=== PATIENT | female | born 1955 | race Caucasian/White ===

== ENCOUNTER → 2017-03-17 | Outpatient (CLI) | payer BC ==
[~2017-03-17] MED LIST: BNC40 PO; CLB/200 PO; LORA-741 PO; METO25TA3 PO
--- NOTE | 2017-03-17 15:23 | MAMMOGRAPHY REPORT ---
BILATERAL DIGITAL SCREENING MAMMOGRAM WITH CAD: 03/17/2017 CLINICAL HISTORY: Routine screening. TECHNIQUE: Current study was also evaluated with a Computer Aided Detection (CAD) system. Bilateral CC and MLO views were obtained. COMPARISON: Comparison is made to exams dated: 03/16/2016 mammogram, 01/23/2015 mammogram, 10/16/2012 ma mmogram, 09/09/2011 mammogram, 09/08/2010 mammogram, and 09/07/2009 mammogram - [facility]. BREAST COMPOSITION: The tissue of both breasts is heterogeneously dense, which may obscure small mas ses. FINDINGS: No suspicious masses, calcifications, or areas of architectural distortion are noted in ei ther breast. There has been no significant interval change compared to prior exams. Scattered bilater al benign-appearing calcifications are not significantly changed. IMPRESSION: ACR BI-RADS CATEGORY 2: BENIGN There is no mammographic evidence of malignancy. A 1 year screening mammogram is recommended. The pa tient will receive written notification of the results. Approximately 10% of breast cancers are not detected with mammography. A negative mammographic report should not delay biopsy if a clinically suggestive mass is present. Mendy Cummings M.D. ah/:03/17/2017 12:05:55 Marine Electrician Apprentice: Tylor GREEN(R)(M), [facility] letter sent: Normal 1/2 BI-RADS Code: ACR BI-RADS Category 2: Benign
== END | disposition home or self-care (01) ==
LOC: C.MAMM 11:20
PROVIDERS: ATTEND Obstetrics & Gynecology
DX: Z12.31 Encounter for screening mammogram for malignant neoplasm of breast (principal)

== ENCOUNTER → 2017-10-27 | Outpatient (CLI) | payer BC ==
[~2017-10-27] MED LIST changes: +ASCA500 PO; +ASPI81CH2 PO; +CALC500C3 PO; +ESCI1TAB10 PO; +GLC5 PO; +HYDR-5688 PO; +LEVO25TA5 PO; +MAGN1CAP4 PO; +MELO15TA10 PO
[2017-10-27 17:21] LABS: BASO % 0.4 %; BASO ABS # 0.02 K/uL (0-0.2); EOS % 2.1 %; HEMATOCRIT 42.6 % (37-47); HEMOGLOBIN 14.4 g/dL (12.0-16.0); IG# 0.01 K/uL (0.00-0.02); LYMPH ABS # 1.46 K/uL (1.2-3.4); MEAN CELL VOLUME 94.9 fL (80-100); MEAN CORPUSCULAR HEMOGLOBIN 32.1 pg (25-34); MEAN CORPUSCULAR HGB CONC 33.8 g/dl (32-36); MEAN PLATELET VOLUME 10.1 fL (7.4-10.4); MONO % 6.2 %; NEUT % 61.1 %; NEUT ABS # 2.97 K/uL (1.4-6.5); PLATELET COUNT 217 K/uL (130-400); RED CELL DISTRIBUTION WIDTH CV 12.5 % (11.5-14.5); RED CELL DISTRIBUTION WIDTH SD 43.2 fL (36.4-46.3); WHITE BLOOD COUNT 4.86 K/uL (4.8-10.8)
== END | disposition home or self-care (01) ==
LOC: C.CPL 16:29
PROVIDERS: ATTEND Orthopaedic Surgery Sports Medicine
DX: S83.232D Complex tear of medial meniscus, current injury, left knee, subsequent encounter (principal); X58.XXXD Exposure to other specified factors, subsequent encounter

== ENCOUNTER → 2017-10-31 | Day surgery (SDC) | payer BC ==
[2017-10-30 09:07] VITALS: BMI 44.0
--- NOTE | 2017-10-30 17:38 | HISTORY & PHYSICAL EXAMINATION ---
DATE OF ADMISSION: 10/31/2017 ADMISSION HISTORY AND PHYSICAL CHIEF COMPLAINT: Acute left knee pain. HISTORY OF PRESENT ILLNESS: This is a 62-year-old female patient of Dr. Glass'vito complaining of acute left knee pain since August of 2017. She has had no injury and the pain has progressively gotten worse. MRI has confirmed a positive medial meniscus complex tear. The patient wishes to proceed with a left knee arthroscopic partial medial meniscectomy and chondroplasty. PAST MEDICAL HISTORY: Hypertension, sleep apnea with the use of CPAP, anxiety, fibromyalgia, diabetes mellitus, hypothyroidism, osteoarthritis, acid reflux, obesity, and history of uterine cancer. SOCIAL HISTORY: Nonsmoker, nondrinker. PAST SURGICAL HISTORY: Tubal ligation and appendectomy. FAMILY HISTORY: Noncontributory. REVIEW OF SYSTEMS: The patient complains of chronic left knee pain and instability. Otherwise, denies any shortness of breath, chest pain, nausea, vomiting or any other joint complaints. MEDICATIONS: 1. Prednisone 5 mg daily. 2. Escitalopram 20 mg daily. 3. Benicar 40 mg daily. 4. Tirosint 50 mcg daily. 5. Ativan 0.5 mg 2 tablets t.i.d. as needed. 6. Tayler 180 mg daily. 7. Magnesium 200 mg daily. 8. Calcium 500 daily as needed. 9. Vitamin B complex. 10. Vitamin D3 4000 units daily. 11. Vimovo 500/20 two times every 30 minutes before meals. ALLERGIES: IJEOMA INHIBITORS AND MILK. PHYSICAL EXAMINATION: GENERAL: Well-developed, well-nourished 62-year-old female in no acute distress. She is alert and oriented x3 and pleasant. HEENT: Normocephalic, atraumatic. Extraocular motions are intact. Pupils are equal and reactive to light. HEART: Regular rate and rhythm, no murmurs appreciated. LUNGS: Clear. ABDOMEN: Soft, nontender, bowel sounds present. EXTREMITIES: Left knee reveals a positive Selwyn's with a painful range of motion of 0-120 degrees. She has medial joint line tenderness. She has 4/5 strength. NEUROLOGIC: Neurovascularly, she is intact in her left lower extremity. DIAGNOSES: Left knee medial meniscus tear and arthritis. She also has a history of hypertension, sleep apnea with the use of CPAP, fibromyalgia, diabetes mellitus, hypothyroidism, osteoarthritis, acid reflux, obesity, and history of uterine cancer. PLAN: The patient was advised of her diagnosis. Indications, risks, benefits, postop course have all been reviewed. The patient wishes to proceed with a left knee arthroscopic partial medial meniscectomy and chondroplasty. Necessary consent forms, preoperative testing and clearances will be obtained.
[~2017-10-31] VITALS: Ht 160 cm; Wt 113.6 kg
[~2017-10-31] MED LIST changes: +ATROPINE SULFATE 0.1 MG/ML 5ML SYR IV PRN; +BUPIVACAINE 0.25% 30 ML VIAL ONE; +BUPIVACAINE 0.5 % 5 MG/1 ML PF 10ML VIAL ONE; +BUPIVACAINE/EPINEPHRINE 0.5% MPF 1:200,000 30 ML VIAL ONE; +CEFAZOLIN 2000MG IV PUSH 15 ML IV SCH; +EpHEDrine SULFATE INJ 50 MG/ML AMP ONE; +FENTANYL CITRATE INJ 50 MCG/1 ML 2 ML VIAL IV PRN; +FENTANYL CITRATE INJ 50 MCG/1 ML 2 ML VIAL ONE; +HYDROCODONE/ACETAMIN 5/325MG TAB ONE; +HYDROCODONE/ACETAMIN 5/325MG TAB PO PRN; +KETOROLAC TROMETHAMINE 30 MG/ML VIAL IV. PRN; +LABETALOL HCL IV 5 MG/ML 20ML IV ONE; +LABETALOL HCL IV 5 MG/ML 20ML IV PRN; +LACTATED RINGER'S 1000ML 1,000 ML IV SCH; +LIDOCAINE HCL 2% 2 ML VIAL (20MG/ML) ONE; +MIDAZOLAM HCL 1 MG/ML 2ML VIAL ONE; +ONDANSETRON INJ 2 MG/ML 2 ML VIAL IV PRN; +ONDANSETRON INJ 2 MG/ML 2 ML VIAL ONE; +PROPOFOL IV EMULSION 10 MG/ML 20 ML VIAL IV ONE; +SODIUM CHLORIDE 0.9% 1000ML 1,000 ML IV SCH
[2017-10-31 05:53] VITALS: PULSE 93; TEMP 36.7; O2SAT 95; Ht 160 cm; Wt 113.6 kg
--- NOTE | 2017-10-31 07:22 | History & Physical Bridge Note ---
H&P Re-Evaluation Bridge Note: I have examined the patient, reviewed the History & Physical and in the interval since the performance of the History & Physical I have noted the following changes of clinical significance: No changes noted
--- NOTE | 2017-10-31 08:30 | [facility] Post Operative Brief Note ---
Immediate Operative Summary Operative Date Oct 31, 2017. Pre-Operative Diagnosis Left knee medial meniscus tear and arthritis Post-Operative Diagnosis Left knee medial meniscus tear and arthritis Procedure(s) Performed Left Knee Arthroscopy with Partial Medial Menisectomy, Three Compartment Chondroplasty Surgeon Dr. Darius Glass Sampling Theory Teacher Surgeon(s) None Estimated Blood Loss 2ml Findings Consistent with Post-Op Diagnosis Specimens None per surgeon Drains None Anesthesia Type General Complication(s) none
--- NOTE | 2017-10-31 08:49 | Discharge Instructions ---
Discharge Instructions Date of Service Oct 31, 2017. Admission Reason for Admission: Left Knee Complex Medial Meniscus Tear, Current In Discharge Discharge Diagnosis / Problem: medial meniscus tear, DJD Discharge Goals Goal(s): Decrease discomfort, Improve function, Increase independence Activity Recommendations Activity Limitations: resume your previous activity . Instructions / Follow-Up Instructions / Follow-Up set up PT IN 2 DAYS, FOLLOWUP 8-10 days for suture removal ,see attached papers ACTIVITY RECOMMENDATIONS: * You may walk on the leg with or without crutches as comfort permits. * Bending of the knee should start at once. * Do not shower for 48 hours following surgery. SPECIAL CARE INSTRUCTIONS: * You may cleanse the skin adjacent to the small wounds with soap and water at the time of the first dressing change. * The application of an ice bag to the front and sides of the knee will decrease swelling and discomfort for the first 48 hours. * The small incisions may be sore and develop bruising. This bruising does not require any special care. SPECIAL PRECAUTIONS: * If you experience unusual pain unrelieved by prescriptions, temperature elevation (100 degrees F. or above) or progressive swelling or bleeding, you should contact our office at for further evaluation. * You may have been prescribed pain medication. If you experience nausea and/or fine skin rash, discontinue this medication and contact our office at for an alternate medication. DRESSING: * Dressing should be comfortable and absorb any leakage of fluid and/or blood. * The dressing may become moist or bloodstained. * Dressing may be removed _48 hours_ after surgery and bandaids placed over the small surgical incisions. If can be removed sooner if it becomes very soiled or loose. * Bandaids may be used over next several days as needed and can be discontinued when there is not further drainage from the wounds. FOLLOW UP VISIT: If appointment is not already scheduled: Please call [facility] [place] to make a follow-up appointment for your surgery at . Current Hospital Diet Patient's current hospital diet: Discharge Diet Recommended Diet: Regular Diet Procedures Procedures Performed: Left Knee Arthroscopy with Partial Medial Menisectomy, Three Compartment Chondroplasty Pending Studies Studies pending at discharge: no Medical Emergencies . Who to Call and When: Medical Emergencies: If at any time you feel your situation is an emergency, please call [phone] immediately. . Non-Emergent Contact Non-Emergency issues call your: Primary Care Provider, Surgeon Call Non-Emergent contact if: temperature is above 101.5, your pain is not controlled, your pain is worsening, wound has increased drainage, wound has increased redness, wound has increased pain . "Provider Documentation" section prepared by Darius Glass. . VTE Core Measure Inpt VTE Proph given/why not?: Treatment not indicated
--- NOTE | 2017-10-31 09:02 | OPERATIVE REPORT ---
DATE OF OPERATION: 10/31/2017 INDICATION FOR PROCEDURE: The patient is a 62-year-old female who had acute pain and inability to walk. She does have obesity. She is basically in a wheelchair because of the pain. We did get an MRI which demonstrated displaced complex medial meniscus tear with fragment displaced over the medial tibial plateau between the MCL and the tibia. She also had some DJD in the knee. PREOPERATIVE DIAGNOSES: 1. Medial meniscus tear, left knee. 2. Osteoarthritis, left knee. 3. Morbid obesity. POSTOPERATIVE DIAGNOSES: Same. PROCEDURE: 1. Left knee arthroscopy with partial medial meniscectomy. 2. Three compartment chondroplasty. SURGEON: Dr. Glass. CUSTOM VAN CONVERTER: None. ANESTHESIA: General and local. OPERATIVE PROCEDURE: The patient was taken to the operating room and anesthetized under general anesthetic. She was placed supine on the operating room table. Pneumatic tourniquet was placed in the left upper thigh. Left lower extremity was prepped and draped in sterile fashion. Knee exam demonstrates she had no instability but significant knee hyperextension. She had very obese leg. Arthroscopy was performed via inferomedial and inferolateral arthroscopy portals. The following findings were noted. In the patellofemoral joint, she had some grade 2 and 3 wear on the patella, no exposed bone. Trochlear groove had grade 2 wear. Medial compartment had grade 3 wear in the medial femoral condyle and grade 2 in the tibial plateau. The meniscus had a complex medial meniscus tear with a flap that was displaced over the medial tibia to the MCL of the tibia. There was a slight radial component to the flap tear but did not go all the way out to the periphery. The inner margin of the posterior horn was frayed and some undersurface fraying was noted. The ACL and PCL were intact. In the lateral compartment, there was fairly large displaced flap of articular cartilage adjacent to the anterior horn of the lateral meniscus, this was from the tibial spine articular surface. This grade 3 wear with the lamination extended all the way back to the posterior lateral tibial plateau all along the tibial spine toward the medial aspect of the lateral tibial plateau only. There was some softening of the remainder of the tibial plateau. The femoral condyle had good articular surface. Partial medial meniscectomy was performed removing the loose flaps and contouring the meniscus to U-shaped resection using both a 4.5 resector blade and a 3.5 angled resector blade. Chondroplasty was performed in all grade 3 areas of the articular surfaces on the patella, medial femoral condyle and the laminating flap was removed on the lateral tibial plateau and the grade 3 areas trimmed on the lateral tibial plateau as well. Knee was copiously irrigated to free of all debris. Knee was injected with 30 mL of Marcaine with epinephrine. Port sites were closed with nylon sutures. Sterile dressings were applied. The patient tolerated the procedure well. I attest to the content of the Intraoperative Record and any orders documented therein. Any exception s are noted below.
[2017-10-31 09:20] VITALS: BP 146/76; PULSE 75; TEMP 36.6; O2SAT 94
[2017-10-31 09:50] VITALS: BP 139/69; PULSE 79; O2SAT 93
[2017-10-31 10:10] VITALS: BP 134/69; PULSE 83; O2SAT 93
--- NOTE | 2017-10-31 10:14 | Anesthesiology Progress Note ---
Anesthesia Post Op Note Date & Time Oct 31, 2017 at 10:14 Vital Signs Pain Intensity: 3.0 Vital Signs Past 12 Hours Date Time Temp Pulse Resp B/P (MAP) Pulse Ox O2 Delivery O2 Flow Rate FiO2 10/31/17 09:50 79 18 139/69 93 Room Air 10/31/17 09:20 36.6 75 18 146/76 94 Room Air 10/31/17 09:15 36.8 76 17 145/70 95 Room Air 10/31/17 09:05 77 16 149/86 95 Room Air 10/31/17 08:55 79 14 169/94 100 Oxymask 10 10/31/17 08:45 77 15 142/92 98 Oxymask 10 10/31/17 08:39 36.2 89 16 184/95 95 Oxymask 10 10/31/17 05:53 36.7 93 20 95 Room Air Notes Mental Status: alert / awake / arousable, participated in evaluation Pt Amnestic to Procedure: Yes Nausea / Vomiting: adequately controlled Pain: adequately controlled Airway Patency, RR, SpO2: stable & adequate BP & HR: stable & adequate Hydration State: stable & adequate Anesthetic Complications: no major complications apparent
[2017-10-31 10:48] VITALS: BP 139/72; PULSE 78; TEMP 36.5; O2SAT 95
== END | disposition home or self-care (01) ==
LOC: C.ACU 05:38
PROVIDERS: ATTEND Orthopaedic Surgery Sports Medicine
DX: S83.232A Complex tear of medial meniscus, current injury, left knee, initial encounter (principal); X58.XXXA Exposure to other specified factors, initial encounter; I10 Essential (primary) hypertension; K21.9 Gastro-esophageal reflux disease without esophagitis; E11.9 Type 2 diabetes mellitus without complications; E03.9 Hypothyroidism, unspecified; G47.33 Obstructive sleep apnea (adult) (pediatric); M19.90 Unspecified osteoarthritis, unspecified site; F41.9 Anxiety disorder, unspecified; E66.9 Obesity, unspecified; Z85.42 Personal history of malignant neoplasm of other parts of uterus; Z79.899 Other long term (current) drug therapy; Z90.89 Acquired absence of other organs; Z88.8 Allergy status to other drugs, medicaments and biological substances